=== PATIENT | female | born 1950 | race Caucasian/White ===

== ENCOUNTER 2017-11-07 02:04 | Emergency (ER) | payer MEDICARE ==
[~2017-11-07] VITALS: Ht 170.2 cm; Wt 102.0 kg
[~2017-11-07 02:04] MED LIST: 1-ME1LIQ PO; COZA50TA PO; CRES10TA PO; FLEEENE3 RE; LEVO.05 PO; MACR100C PO; MAGN400 PO; METF-324 PO; NOVO7030P2 SQ; POLY255S PO
[2017-11-07 02:20] VITALS: BP 170/76; PULSE 107; RESP 18; TEMP 99.3; O2SAT 95
--- NOTE | 2017-11-07 02:54 | PD ---
HPI Chief Complaint: General Weakness Time Seen by Provider: 02:41 Travel History International Travel<30 days: No Contact w/Intl Traveler<30days: No Traveled to known affect area: No History of Present Illness HPI 67 year-old female presents to the emergency department by private transportation for complaint of progressive weakness of the bilateral lower extremities. Patient has had symptoms for 6 months. Patient states she's noticed increased weakness over the past 24 hours. Patient denies any numbness or tingling of the lower extremity. No bladder or bowel dysfunction and no saddle anesthesia. Patient has chronic low back pain secondary to previous disc disease with prior laminectomy. Patient also has history of diabetes hypertension dyslipidemia and sciatica. Patient states she's been prescribed Lortab and gabapentin for her symptoms by her primary care provider. Patient states she has been on gabapentin for approximately 2 months and has been on hydrocodone for over a year. Patient states this morning she was trying to get out of bed and her legs were weak causing her to slip onto the floor without injury. Patient states she had difficulty trying to get up off the floor by herself so she called 911 and by department arrived at her home assisted her upright and helped her get to the car. Patient was able to ambulate with minimal assistance according to her. Patient presents now for further evaluation. Patient states she does not use a walker to assist with ambulation. Patient's had no recent febrile illness respiratory illness viral syndrome neck pain upper back pain low back pain chest pain shortness of breath palpitations pleuritic pain nausea vomiting abdominal pain diarrhea dysuria frequency or urgency. Denies any bladder or bowel dysfunction urinary retention or bowel incontinence. [facility] Past Medical History Narrative Medical Hypertension diabetes sciatica no tobacco use nursing notes reviewed Heart Rhythm Problems: No Cardiac Catheterization: No Cardiovascular Problems: Yes (HTN) High Cholesterol: No Congestive Heart Failure: No Diabetes: Yes Patient Takes Glucophage: No Diminished Hearing: No Hypertension: Yes Past Surgical History Coronary Artery Bypass Graft: No Other Surgery: Yes (SEBACEOUS CYST REMOVED FROM LEFT SHOULDER) Social History Alcohol Use: No Tobacco Use: No (QUIT 3 YEARS AGO) Substance Use: No Allergies-Medications (Allergen,Severity, Reaction): Coded Allergies: cefaclor (Unverified Allergy, Severe, Hives, 11/07/17) sulfamethoxazole (Unverified Allergy, Severe, Itching, 11/07/17) trimethoprim (Unverified Allergy, Severe, Itching, 11/07/17) Reported Meds & Prescriptions Reported Meds & Active Scripts Active Reported [unknown BP med] 1 Tab PO DAILY Hydrochlorothiazide 25 Mg Tab 25 Mg PO DAILY Losartan (Losartan Potassium) 25 Mg Tab 12.5 Mg PO DAILY Actos (Pioglitazone HCl) 30 Mg Tab 30 Mg PO DAILY Novolog Mix 70-30 Inj (Insulin Aspart Prota 70%/Aspart 30%) 1,000 Unit/10 Ml Vial 90 Units SQ BID Metformin (Metformin HCl) 1,000 Mg Tab 1,000 Mg PO BIDPC Gabapentin 300 Mg Cap 300 Mg PO BID Hydrocodone-Acetaminophen 5-300 Mg Tab 1 Tab PO Q4H PRN Review of Systems Except as stated in HPI: all other systems reviewed are Neg General / Constitutional: No: Fever, Chills Eyes: No: Visual changes HENT: No: Headaches, Neck Stiffness, Neck Pain Cardiovascular: No: Chest Pain or Discomfort Respiratory: No: Shortness of Breath Gastrointestinal: No: Nausea, Vomiting, Abdominal Pain Genitourinary: No: Dysuria, Pelvic Pain Musculoskeletal: Positive: Myalgias, Arthralgias, Weakness, No: Cramping, Edema , Pain Skin: No Rash Neurologic: Positive: Weakness, No: Dizziness, Syncope, Focal Abnormalities, Coordination Problem, Headache, Change in Mentation, Slurred Speech, Paresthesia , Incontinence, Seizures, Sensory Disturbance Psychiatric: No: Anxiety, Depression Endocrine: No: Heat Intolerance Hematologic/Lymphatic: No: Easy Bruising Physical Exam Narrative GENERAL: Well-developed well-nourished obese female in no acute distress no respiratory distress SKIN: Warm and dry. HEAD: Atraumatic. Normocephalic. EYES: Pupils equal and round. No scleral icterus. No injection or drainage. ENT: No nasal bleeding or discharge. Mucous membranes pink and moist. NECK: Trachea midline. No JVD. CARDIOVASCULAR: Regular rate and rhythm. RESPIRATORY: No accessory muscle use. Clear to auscultation. Breath sounds equal bilaterally. GASTROINTESTINAL: Abdomen soft, non-tender, nondistended. Hepatic and splenic margins not palpable. MUSCULOSKELETAL: Extremities without clubbing, cyanosis, or edema. No obvious deformities. NEUROLOGICAL: Awake and alert. No obvious cranial nerve deficits. Motor grossly within normal limits. Five out of 5 muscle strength in the arms and legs. Normal speech. PSYCHIATRIC: Appropriate mood and affect; insight and judgment normal. Data Data Last Documented VS Vital Signs Date Time Temp Pulse Resp B/P (MAP) Pulse Ox O2 Delivery O2 Flow Rate FiO2 11/07/17 04:27 84 16 129/58 (81) 96 Room Air 11/07/17 02:20 99.3 Orders Orders Urinalysis - C+S If Indicated (11/07/17 02:41) Electrocardiogram (11/07/17 03:11) Basic Metabolic Panel (Bmp) (11/07/17 03:11) Complete Blood Count With Diff (11/07/17 03:11) Magnesium (Mg) (11/07/17 03:11) Troponin I (11/07/17 03:11) Ct Brain W/O Iv Contrast(Rout) (11/07/17 03:11) Ecg Monitoring (11/07/17 03:11) Iv Access Insert/Monitor (11/07/17 03:11) Oximetry (11/07/17 03:11) Sodium Chloride 0.9% Flush (Ns Flush) (11/07/17 03:15) Ketorolac Inj (Toradol Inj) (11/07/17 03:45) Acetamin-Hydrocod 325-5 Mg ([place] 5-325 (11/07/17 03:45) Spine, Lumbar - Ltd (Ap & Lat) (11/07/17 ) Urine Culture (11/07/17 02:55) Sodium Chlor 0.9% 1000 Ml Inj (Ns 1000 M (11/07/17 04:30) Nitrofurantoin Monohyd Macrocr (Macrobid (11/07/17 04:30) Labs Laboratory Tests Test 11/07/17 02:55 11/07/17 03:20 Urine Color YELLOW Urine Turbidity HAZY Urine pH 5.5 Urine Specific Jber 1.013 Urine Protein 30 mg/dL Urine Glucose (UA) 300 mg/dL Urine Ketones NEG mg/dL Urine Occult Blood NEG Urine Nitrite NEG Urine Bilirubin NEG Urine Urobilinogen LESS THAN 2.0 MG/DL Urine Leukocyte Esterase NEG Urine RBC 1 /hpf Urine WBC 5 /hpf Urine Squamous Epithelial Cells 2 /hpf Urine Bacteria MOD /hpf Urine Hyaline Casts 3 /lpf Urine Mucus FEW /lpf Microscopic Urinalysis Comment CULTURE INDICATED White Blood Count 10.1 TH/MM3 Red Blood Count 4.47 MIL/MM3 Hemoglobin 13.6 GM/DL Hematocrit 39.7 % Mean Corpuscular Volume 88.7 FL Mean Corpuscular Hemoglobin 30.3 PG Mean Corpuscular Hemoglobin Concent 34.2 % Red Cell Distribution Width 14.1 % Platelet Count 283 TH/MM3 Mean Platelet Volume 8.8 FL Neutrophils (%) (Auto) 70.7 % Lymphocytes (%) (Auto) 10.4 % Monocytes (%) (Auto) 16.8 % Eosinophils (%) (Auto) 1.5 % Basophils (%) (Auto) 0.6 % Neutrophils # (Auto) 7.2 TH/MM3 Lymphocytes # (Auto) 1.1 TH/MM3 Monocytes # (Auto) 1.7 TH/MM3 Eosinophils # (Auto) 0.2 TH/MM3 Basophils # (Auto) 0.1 TH/MM3 CBC Comment DIFF FINAL Differential Comment Blood Urea Nitrogen 21 MG/DL Creatinine 1.22 MG/DL Random Glucose 246 MG/DL Calcium Level 10.1 MG/DL Magnesium Level 1.7 MG/DL Sodium Level 138 MEQ/L Potassium Level 4.0 MEQ/L Chloride Level 100 MEQ/L Carbon Dioxide Level 33.0 MEQ/L Anion Gap 5 MEQ/L Estimat Glomerular Filtration Rate 44 ML/MIN Troponin I LESS THAN 0.02 NG/ML MDM Medical Decision Making Medical Screen Exam Complete: Yes Emergency Medical Condition: Yes Medical Record Reviewed: Yes Interpretation(s) EKG: Normal sinus rhythm rate [address] elevation or injury pattern change noted artifact is present at baseline non-specific ST-T wave changes UA: Moderate bacteria glucosuria culture indicated l/s xr: Chronic bony changes atherosclerotic changes of the aorta Last Impressions Head CT 11/07/171 Signed Impressions: Service Date/Time: Tuesday, November 07, 2017 03:26 - CONCLUSION: No acute intracranial findings. Dragan Spicer MD CBC & BMP Diagram 11/07/17 03:20 Calcium Level 10.1, Magnesium Level 1.7 Vital Signs Date Time Temp Pulse Resp B/P (MAP) Pulse Ox O2 Delivery O2 Flow Rate FiO2 11/07/17 02:20 99.3 107 18 170/76 (107) 95 Room Air Troponin I less than 0.02, not elevated Differential Diagnosis Generalized weakness, uncontrolled diabetes, UTI, HNP, sciatica, cauda equina Narrative Course urine specimen collected patient able to ambulate to bedside commode and return to bedside without assistance At 3:10 AM at bedside with patient to see how she is able to get up off of stretcher and ambulate independently based on nursing report patient requiring assistance to sit upright and then to stand able to take a few steps feels unsteady but subsequently able to sit, stand, and move laterally to sit back down without assistance. Patient states actually she's been having weakness and balance disturbance for approximately one week. Patient denies any headache visual disturbance speech disturbance change in mentation upper extremity numbness tingling or weakness. Patient states legs of been getting progressively weaker over the past 6 months and especially over the past one week and then tonight with her episode of weakness that she got out of bed and slid onto the floor. Patient again denies any injury to her fall although has some mild pain intermittently to remind her over sciatica affecting her right lower extremity. @ 3:45 AM now complains of increasing sciatica pain At 4:25 AM basic metabolic panel shows renal dysfunction renal insufficiency hyperglycemia troponin I less than 0.02 not elevated imaging of the lumbar spine shows chronic changes no acute fracture. Patient reports that she feels improved after Toradol and Lortab area patient given first dose of oral antibiotic Levaquin 500 milligrams as well as a liter of normal saline patient reports that she missed her 1 dose of metformin last evening. Diagnosis Primary Impression: Generalized weakness Additional Impressions: Bacteriuria Chronic low back pain Hyperglycemia Noncompliance with medications Referrals: Primary Care Physician call for appointment Patient Instructions: General Instructions Med/Other Pt SpecificInfo: Prescription(s) given Scripts Nitrofurantoin Monohydrate Macrocrystals (Macrobid) 100 Mg Cap 100 MG PO BID for Infection, #14 CAP 0 Refills Prov: Shonda Davis MD 11/07/17 Disposition: 01 DISCHARGE HOME Condition: Stable Shonda Davis MD Nov 07, 2017 02:54
[2017-11-07] MEDS ORDERED: SODIUM CHLORIDE 0.9% FLUSH 10 ML FLUSH IVF PRN (03:15)
[2017-11-07 03:38] LABS: AUTOMATED NEUTROPHIL # 7.2 TH/MM3 (1.8-7.7); BASOPHIL # 0.1 TH/MM3 (0-0.2); BASOPHIL % 0.6 % (0.0-2.0); EOSINOPHIL # 0.2 TH/MM3 (0-0.4); EOSINOPHIL % 1.5 % (0.0-4.0); HEMATOCRIT 39.7 % (35.0-46.0); HEMOGLOBIN 13.6 GM/DL (11.6-15.3); LYMPH % 10.4 % (9.0-44.0); LYMPHOCYTE # 1.1 TH/MM3 (1.0-4.8); MEAN CELL VOLUME 88.7 FL (80.0-100.0); MEAN CORPUSCULAR HEMOGLOBIN 30.3 PG (27.0-34.0); MEAN CORPUSCULAR HGB CONC 34.2 % (32.0-36.0); MEAN PLATELET VOLUME 8.8 FL (7.0-11.0); MONO % 16.8 % (0.0-8.0); MONOCYTE # 1.7 TH/MM3 (0-0.9); NEUT % 70.7 % (16.0-70.0); PLATELET COUNT 283 TH/MM3 (150-450); RED BLOOD COUNT 4.47 MIL/MM3 (4.00-5.30); RED CELL DISTRIBUTION WIDTH 14.1 % (11.6-17.2); WHITE BLOOD COUNT 10.1 TH/MM3 (4.0-11.0)
--- NOTE | 2017-11-07 03:40 | RADRPT ---
EXAM DATE/TIME: 11/07/2017 03:26 [facility] COMPARISON: No previous studies available for comparison. INDICATIONS : General weakness. RADIATION DOSE: 35.18 CTDIvol (mGy) MEDICAL HISTORY : Hypertension. Diabetes mellitus type 2. Cardiovascular disease SURGICAL HISTORY : None. ENCOUNTER: Initial ACUITY: 2 days PAIN SCALE: 4/10 LOCATION: cranial TECHNIQUE: Multiple contiguous axial images were obtained of the head. Using automated exposure control and adj ustment of the mA and/or kV according to patient size, radiation dose was kept as low as reasonably a chievable to obtain optimal diagnostic quality images. DICOM format image data is available electro nically for review and comparison. FINDINGS: CEREBRUM: The ventricles are normal for age. No evidence of midline shift, mass lesion, hemorrhage or acute in farction. No extra-axial fluid collections are seen. POSTERIOR FOSSA: The cerebellum and brainstem are intact. The 4th ventricle is midline. The cerebellopontine angle i s unremarkable. EXTRACRANIAL: The visualized portion of the orbits is intact. SKULL: The calvaria is intact. No evidence of skull fracture. CONCLUSION: No acute intracranial findings. Dragan Spicer MD on November 07, 2017 at 3:37 Board Certified Radiologist. This report was verified electronically.
[2017-11-07] MEDS ORDERED: ACETAMINOPHEN/HYDROcodone 325 MG/5 MG TAB PO ONE (03:45)
[2017-11-07] MEDS ORDERED: KETOROLAC TROMETHAMINE 30 MG/ML (IVP) VIAL IV PUSH ONE (03:45)
[2017-11-07 03:47] LABS: BACTERIA, URINE MOD /hpf; BILIRUBIN, URINE NEG (NEG); BLOOD, URINE NEG (NEG); GLUCOSE,URINE 300 mg/dL (NEG); HYALINE CAST, URINE 3 /lpf (RARE); KETONE, URINE NEG (NEG); MUCUS URINE FEW /lpf (OCC); NITRITE,URINE NEG (NEG); PH, URINE 5.5 (5.0-8.5); SQUAMOUS EPITHELIAL CELL URINE 2 /hpf (0-5); URINE COLOR YELLOW (YELLW/STRAW); URINE LEUKOCYTE ESTERASE NEG (NEG)
[2017-11-07] MEDS ORDERED: HYDR25TA5 PO (03:49)
[2017-11-07] MEDS ORDERED: PIOG30 PO (03:49)
[2017-11-07] MEDS ORDERED: LOSA25TA PO (03:49)
[2017-11-07] MEDS ORDERED: GABA300C5 PO (03:49)
[2017-11-07] MEDS ORDERED: unknown BP med PO (03:49)
[2017-11-07] MEDS ORDERED: HYDR-4107 PO (03:49)
[2017-11-07] MEDS ORDERED: NOVOLOGMXP SQ (03:49)
[2017-11-07] MEDS ORDERED: METF1000 PO (03:49)
[2017-11-07 04:13] LABS: TROPONIN I LESS THAN 0.02 NG/ML (0.02-0.05)
[2017-11-07 04:16] LABS: BLOOD UREA NITROGEN 21 MG/DL (7-18); CALCIUM 10.1 MG/DL (8.5-10.1); CHLORIDE 100 MEQ/L (98-107); CREATININE 1.22 MG/DL (0.50-1.00); GLOMERULAR FILTRATION RATE 44 ML/MIN (>89); GLUCOSE,RANDOM 246 MG/DL (74-106); MAGNESIUM 1.7 MG/DL (1.5-2.5); SODIUM (NA) 138 MEQ/L (136-145)
--- NOTE | 2017-11-07 04:22 | RADRPT ---
EXAM DATE/TIME: 11/07/2017 03:51 [facility] COMPARISON: No previous studies available for comparison. INDICATIONS : Patient complains of lower back pain. No known injury. MEDICAL HISTORY : None. SURGICAL HISTORY : Lumbar laminectomy x 2. Lumbar fusion. ENCOUNTER: Initial ACUITY: 2 days PAIN SCORE: 7/10 LOCATION: L-Spine FINDINGS: 3 views lumbar spine. Posterior fusion hardware seen at L3-4. Hardware intact. Alignment within abeba l limits. No evidence of fracture. Moderate-sized endplate osteophytes at L2-3 the L3-4, and L4-5. Mi ld intervertebral disc narrowing at L3-4 and L4-5. Mild to moderate bony facet hypertrophy at L2-3, L 3-4, and L4-5. Diffuse aortoiliac calcification. CONCLUSION: Postsurgical findings lumbar spine at L3-4. Moderate severity bony degenerative findings of the lumba r spine. Diffuse aortoiliac calcification. Dragan Spicer MD on November 07, 2017 at 4:19 Board Certified Radiologist. This report was verified electronically.
[2017-11-07 04:27] VITALS: BP 129/58; PULSE 84; RESP 16; O2SAT 96
[2017-11-07] MEDS ORDERED: SODIUM CHLOR 0.9% 1000 ML INJ 1,000 ML IV ONE (04:30)
[2017-11-07] MEDS ORDERED: NITROFURANTOIN MONOHYD MACROCR 100 MG CAP PO ONE (04:30)
[2017-11-07] MEDS ORDERED: MACR100C2 PO (04:41)
--- NOTE | 2017-11-08 10:06 | EKG ---
Date Performed: 11/07/2017 Time Performed: 03:19:57 PTAGE: 67 years EKG: Sinus rhythm NONSPECIFIC ST & T-WAVE ABNORMALITY BORDERLINE ECG NO PREVIOUS TRACING DOCTOR: Lilly Roa Interpretating Date/Time 11/08/2017 10:05:17
== END 2017-11-07 05:10 | disposition home or self-care (01) ==
LOC: NEPC 02:04
DX: R53.1 Weakness (principal); R82.71 Bacteriuria; B96.20 Unspecified Escherichia coli [E. coli] as the cause of diseases classified elsewhere; M54.5 Low back pain; G89.29 Other chronic pain; E11.65 Type 2 diabetes mellitus with hyperglycemia; R94.31 Abnormal electrocardiogram [ECG] [EKG]; M51.36 Other intervertebral disc degeneration, lumbar region; Z91.14 Patient's other noncompliance with medication regimen
CPT/HCPCS: 70450; 72100; 80048; 81001; 83735; 84484; 85025; 87077; 87086; 87186; 93005; 96374; 99285; J1885; J7030